=== PATIENT | female | born 1975 ===

== ENCOUNTER 2017-04-11 02:58 | Inpatient (IN) | payer MEDICAID ==
[~2017-04-11] VITALS: Ht 167.6 cm; Wt 82.9 kg
--- NOTE | ~2017-04-11 | OP ---
PATIENT NAME: SAM CASTELAN MEDICAL RECORD: [id number] :77 LOCATION:D. D.2134 ADMISSION DATE:04/11/17 SURGEON: HENRY YOUNG MD DATE OF OPERATION: 04/12/2017 REFERRING PHYSICIAN: Michelle Tavares MD. DIAGNOSIS: Acute renal failure. SURGEON: Henry Young MD ANESTHESIA: MAC per RN OUTPATIENT SURGERY plus local 1% lidocaine without epinephrine. OPERATION PERFORMED: Insertion of a left internal jugular 19-cm long HemoSplit tunneled dialysis catheter with fluoroscopic and ultrasound guidance. PREOPERATIVE NOTE: Ms. Castelan is a 41-year-old white female drug addict with acute renal failure believed due possibly to acute tubular necrosis from hypotension associated with overdose of narcotics and benzodiazepines. She is brought to the operating room now for insertion of a HemoSplit catheter so that she can dialyze I believe tomorrow morning. DESCRIPTION OF PROCEDURE: Under MAC, the patient was difficult to sedate due to extreme tolerance to medications. She was placed in supine position, prepped and draped in a sterile manner. I located the right internal jugular vein with duplex ultrasound and on examination that vein was normal in appearance. It was fully compressible and normal in caliber and there was a functioning valve seen flapping away in the vein. The skin and subcutaneous tissues overlying at the base of the neck were infiltrated with lidocaine. A 1-cm incision was made and through that incision, a needle and guidewire were introduced into the internal jugular vein under continuous ultrasound guidance. Under fluoroscopy, the guidewire was advanced into the right atrium and dilators were passed over it. Lastly, a peel-away dilator introducer was inserted. I chose a 19-cm long HemoSplit, infiltrated local anesthetic into the skin beneath the clavicle, made a stab incision and pulled the new catheter from that stab incision through a subcutaneous tunnel up to the cervical wound and inserted it then through the peel-away introducer as it was removed. The catheter positioned well in the right atrium under fluoroscopy. Both lumens of the catheter were aspirated and free return of blood from each confirmed. They were then flushed with saline and lastly with heparin lock solution 100 units per cc clamped and capped. The catheter was sutured to the skin near the entry site with 2-0 Prolene. The cervical incision was closed with interrupted inverted 3-0 Vicryl and Dermabond glue and that site was dressed with Maxorb Ag, Tegaderm, and Cavilon skin prep. A chlorhexidine Biopatch was applied to the catheter at its entry site and over that a standard central venous catheter dressing was applied. The patient then in stable condition was returned to her room on med 2. Fluoroscopic images were recorded documenting satisfactory placement of the catheter with good positioning and no complications. No chest x-ray was ordered postop. TRANSINT:[id number] Voice Confirmation ID: [id number] DOCUMENT ID: [id number] OPERATIVE REPORT [id number] SAM CASTELAN JAMES MD at 1511 CC: MICHELLE TAVARES MD [id number] DICTATION DATE: 04/12/172222 ACCOUNTS PAYABLE OR RECEIVABLE CLERK: 04/13/17209 DIS IN 04/15/17 [facility] [address] [place] [address]
[2017-04-11] MEDS ORDERED: XANAX1 MG PO (04:07)
[2017-04-11] MEDS ORDERED: DILAUDID4 MG PO (04:08)
[2017-04-11] MEDS ORDERED: ZESTRIL40 MG PO (04:09)
[2017-04-11] MEDS ORDERED: NIFEDIPINE ER30 MG PO (04:09)
[2017-04-11] MEDS ORDERED: COREG 3.1253.125 MG PO (04:10)
[2017-04-11] MEDS ORDERED: HYDRALAZINE HCL50 MG PO (04:10)
[2017-04-11] MEDS ORDERED: PHOSLO667 MG PO (04:11)
[2017-04-11 04:20] VITALS: BMI 29.7
[2017-04-11 05:31] VITALS: BP 112/67
[2017-04-11 08:04] VITALS: BP 101/64
[2017-04-11 09:13] VITALS: Ht 167.6 cm; Wt 82.9 kg
[2017-04-11 13:22] VITALS: BP 110/68
[2017-04-11 15:45] VITALS: BP 108/66
[2017-04-11 19:00] VITALS: BP 109/60
[2017-04-12 05:10] LABS: BASOPHILS 0.3 % (0-2); EOSINOPHILS 1.9 % (0-7); HEMATOCRIT 28.1 % (36.0-48.0); HEMOGLOBIN 9.2 g/dL (12-16); IMMATURE GRANULOCYTES 0.2 % (0-5); LYMPHOCYTES 23.3 % (15-50); MCH 30.4 pg (26.0-34.0); MCHC 32.7 g/dL (31.0-37.0); MCV 92.7 fL (80.0-100.0); MEAN PLATELET VOLUME 9.7 fL (7.4-10.4); MONOCYTES 6.3 % (2-11); PLATELET COUNT 330 10x3/uL (130-400); RBC 3.03 10x6/uL (4.00-5.40); RDW 13.1 % (11.5-14.5); WBC 11.5 10x3/uL (4.8-10.8)
[2017-04-12 05:24] LABS: INR 1.19 (0.85-1.17); PROTIME 14.7 SECONDS (11.6-15.0)
[2017-04-12 05:28] LABS: ANION GAP 21.8 mmol/L (8-16); CARBON DIOXIDE 18.7 mmol/L (21.0-32.0); CREATININE - SERUM 8.8 mg/dL (0.6-1.3); POTASSIUM - SERUM 4.5 mmol/L (3.5-5.1); URIC ACID 8.2 mg/dL (2.6-7.2)
[2017-04-12 05:29] LABS: CALCIUM 6.8 mg/dL (8.5-10.1)
[2017-04-12 08:31] VITALS: BP 135/84
[2017-04-12 12:00] VITALS: BP 147/88
[2017-04-13 04:00] VITALS: BP 144/78
[2017-04-13 06:06] LABS: BASOPHILS 0.2 % (0-2); EOSINOPHILS 2.3 % (0-7); HEMATOCRIT 27.2 % (36.0-48.0); IMMATURE GRANULOCYTES 0.4 % (0-5); LYMPHOCYTES 21.4 % (15-50); MCH 30.6 pg (26.0-34.0); MCHC 33.1 g/dL (31.0-37.0); MCV 92.5 fL (80.0-100.0); MEAN PLATELET VOLUME 9.3 fL (7.4-10.4); MONOCYTES 7.7 % (2-11); PLATELET COUNT 330 10x3/uL (130-400); RBC 2.94 10x6/uL (4.00-5.40)
[2017-04-13 06:07] LABS: WBC 8.4 10x3/uL (4.8-10.8)
[2017-04-13 06:26] LABS: % SATURATION 12 % (15-55); IRON 25 ug/dl (35-150); TOTAL IRON BIND CAPACITY 203 ug/dl (260-445); UNSAT IRON BIND CAPACITY 178 ug/dl (150-375)
[2017-04-13 06:40] LABS: CALCIUM 7.4 mg/dL (8.5-10.1); CARBON DIOXIDE 20.3 mmol/L (21.0-32.0); CREATININE - SERUM 8.2 mg/dL (0.6-1.3); POTASSIUM - SERUM 4.3 mmol/L (3.5-5.1)
[2017-04-13 08:11] VITALS: BP 127/81
[2017-04-13 13:12] LABS: HEPATITIS C ANTIBODY >11.0 (0.0-0.9)
[2017-04-13 16:11] VITALS: BP 129/72
[2017-04-13 22:03] LABS: APPEARANCE CLEAR (CLEAR); COLOR YELLOW (YELLOW); GLUCOSE NEGATIVE (NEGATIVE); KETONE NEGATIVE (NEGATIVE); NITRITE NEGATIVE (NEGATIVE); PROTEIN 2+ mg/dL (NEGATIVE); SPECIFIC GRAVITY 1.015 (1.005-1.020)
[2017-04-13 22:04] LABS: BILIRUBIN NEGATIVE (NEGATIVE); UROBILINOGEN NORMAL (NORMAL)
[2017-04-13 22:05] LABS: BACTERIA MANY /hpf (NONE SEEN); RED CELLS - URINE 25-50 /hpf (0-5); WHITE CELLS - URINE 0-5 /hpf (0-5)
[2017-04-14 04:27] VITALS: BP 118/66
[2017-04-14 06:25] LABS: BASOPHILS 0.6 % (0-2); EOSINOPHILS 5.3 % (0-7); HEMATOCRIT 26.3 % (36.0-48.0); HEMOGLOBIN 8.6 g/dL (12-16); IMMATURE GRANULOCYTES 0.3 % (0-5); LYMPHOCYTES 26.9 % (15-50); MCH 30.3 pg (26.0-34.0); MCHC 32.7 g/dL (31.0-37.0); MCV 92.6 fL (80.0-100.0); MEAN PLATELET VOLUME 9.4 fL (7.4-10.4); MONOCYTES 9.1 % (2-11); NEUTROPHILS 57.8 % (40-80); PLATELET COUNT 337 10x3/uL (130-400); RBC 2.84 10x6/uL (4.00-5.40); RDW 12.9 % (11.5-14.5)
[2017-04-14 06:46] LABS: ALBUMIN 2.4 g/dL (3.4-5.0); ANION GAP 16.1 mmol/L (8-16); CALCIUM 7.2 mg/dL (8.5-10.1); CARBON DIOXIDE 24.9 mmol/L (21.0-32.0); CREATININE - SERUM 6.3 mg/dL (0.6-1.3); PHOSPHOROUS 6.7 mg/dL (2.5-4.9)
[2017-04-14 07:56] VITALS: BP 127/76
[2017-04-14 12:02] VITALS: BP 141/91
[2017-04-14 16:04] VITALS: BP 124/76
[2017-04-14] MEDS ORDERED: XANAX0.5 MG PO (17:06)
[2017-04-14] MEDS ORDERED: DILAUDID2 MG PO (17:08)
[2017-04-14 20:51] VITALS: BP 125/83
[2017-04-15 00:29] VITALS: BP 123/75
[2017-04-15 04:17] VITALS: BP 139/91
[2017-04-15 06:28] LABS: BASOPHILS 0.5 % (0-2); HEMATOCRIT 25.3 % (36.0-48.0); HEMOGLOBIN 8.4 g/dL (12-16); IMMATURE GRANULOCYTES 0.6 % (0-5); LYMPHOCYTES 27.1 % (15-50); MCH 30.3 pg (26.0-34.0); MCHC 33.2 g/dL (31.0-37.0); MCV 91.3 fL (80.0-100.0); MEAN PLATELET VOLUME 8.9 fL (7.4-10.4); MONOCYTES 9.3 % (2-11); NEUTROPHILS 54.5 % (40-80); PLATELET COUNT 311 10x3/uL (130-400); RBC 2.77 10x6/uL (4.00-5.40); RDW 12.8 % (11.5-14.5); WBC 6.5 10x3/uL (4.8-10.8)
[2017-04-15 06:54] LABS: CALCIUM 7.7 mg/dL (8.5-10.1); CARBON DIOXIDE 26.9 mmol/L (21.0-32.0); CREATININE - SERUM 5.1 mg/dL (0.6-1.3); POTASSIUM - SERUM 3.9 mmol/L (3.5-5.1)
[2017-04-15 08:00] VITALS: BP 159/94
== END 2017-04-15 11:24 | disposition home or self-care (01) | DRG 682 ==
LOC: D.M2 02:58
PROVIDERS: Internal Medicine Nephrology; Surgery
PROC: 5A1D70Z Performance of Urinary Filtration, Intermittent, Less than 6 Hours Per Day (ICD-10-PCS; 2017-04-12)
PROC: 05HM33Z Insertion of Infusion Device into Right Internal Jugular Vein, Percutaneous Approach (ICD-10-PCS; principal; 2017-04-12 16:00)
DX: N17.0 Acute kidney failure with tubular necrosis (principal); J18.9 Pneumonia, unspecified organism; J44.0 Chronic obstructive pulmonary disease with (acute) lower respiratory infection; I12.0 Hypertensive chronic kidney disease with stage 5 chronic kidney disease or end stage renal disease; F11.20 Opioid dependence, uncomplicated; N18.6 End stage renal disease; Z99.2 Dependence on renal dialysis; F41.8 Other specified anxiety disorders; E83.39 Other disorders of phosphorus metabolism; D63.1 Anemia in chronic kidney disease; I95.9 Hypotension, unspecified; Z72.0 Tobacco use

== ENCOUNTER 2017-06-14 05:40 | Day surgery (SDC) | payer MEDICAID ==
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
[~2017-06-14 05:40] MED LIST: COREG 3.1253.125 MG PO; DILAUDID4 MG PO; HYDRALAZINE HCL50 MG PO; NIFEDIPINE ER30 MG PO; PHOSLO667 MG PO; PROZAC20 MG PO; XANAX1 MG PO; ZESTRIL40 MG PO
[2017-06-14] MEDS ORDERED: PHOSLO667 MG PO (06:16)
[2017-06-14] MEDS ORDERED: RENAGEL400 MG PO (06:17)
[2017-06-14] MEDS ORDERED: CATAPRES0.1 MG PO (06:18)
[2017-06-14] MEDS ORDERED: FUROSEMIDE20 MG PO (06:19)
[2017-06-14] MEDS ORDERED: ENULOSE10 G/15 ML PO (06:19)
[2017-06-14] MEDS ORDERED: ZOFRAN4 MG (06:20)
[2017-06-14] MEDS ORDERED: ACETAMINOPHEN325 MG PO (06:20)
[2017-06-14 06:26] VITALS: BMI 27.5
[2017-06-14 06:45] LABS: BASOPHILS 0.3 % (0-2); EOSINOPHILS 9.8 % (0-7); HEMATOCRIT 31.1 % (36.0-48.0); HEMOGLOBIN 9.6 g/dL (12-16); IMMATURE GRANULOCYTES 0.1 % (0-5); LYMPHOCYTES 21.1 % (15-50); MCH 30.6 pg (26.0-34.0); MCHC 30.9 g/dL (31.0-37.0); MEAN PLATELET VOLUME 9.2 fL (7.4-10.4); MONOCYTES 8.7 % (2-11); PLATELET COUNT 256 10x3/uL (130-400); RBC 3.14 10x6/uL (4.00-5.40); RDW 13.9 % (11.5-14.5); WBC 7.8 10x3/uL (4.8-10.8)
[2017-06-14 07:08] LABS: ANION GAP 15.8 mmol/L (8-16); CALCIUM 8.9 mg/dL (8.5-10.1); CREATININE - SERUM 6.1 mg/dL (0.6-1.3); POTASSIUM - SERUM 4.8 mmol/L (3.5-5.1)
[2017-06-14 07:20] LABS: INR 1.22 (0.85-1.17)
[2017-06-14 08:10] LABS: HCG SERUM NEGATIVE (NEGATIVE)
[2017-06-14 08:27] LABS: APTT 20.4 SECONDS (22.8-39.4)
== END 2017-06-14 12:30 | disposition home or self-care (01) ==
LOC: D.OPS 05:40 → D.PAN 07:30 → D.OPS 07:30
PROVIDERS: Internal Medicine Nephrology; Surgery
DX: I12.0 Hypertensive chronic kidney disease with stage 5 chronic kidney disease or end stage renal disease (principal); N18.6 End stage renal disease; Z99.2 Dependence on renal dialysis; F17.200 Nicotine dependence, unspecified, uncomplicated; J44.9 Chronic obstructive pulmonary disease, unspecified; B19.20 Unspecified viral hepatitis C without hepatic coma; M19.90 Unspecified osteoarthritis, unspecified site; Z01.812 Encounter for preprocedural laboratory examination